=== PATIENT | male | born 1945 | race Caucasian/White ===

== ENCOUNTER 2016-05-30 12:38 | Inpatient (IN) | payer MEDICARE, BC ==
--- NOTE | ~2016-05-30 | DS ---
Discharge Summary [facility] [address] [place]. [address] NAME: JENNIFER HOLT : 47 STATUS : DIS IN PAT#: [id number] AGE: 71 ADM/REG DATE : 05/30/16 MR#: [id number] REPORT SERV DATE: 06/07/16 DICTATED BY: MICHAEL CALLE DATE: 06/04/16 REPORT STATUS : Draft TRANSCRIBED BY: MODL DATE: 06/04/16 ADMISSION DATE: 05/30/2016 DISCHARGE DATE: 06/04/2016 DISCHARGE DIAGNOSES: 1. Respiratory failure leading to . 2. Exacerbation of chronic obstructive pulmonary disease. 3. Acute systolic heart failure with depressed ejection fraction, cardiomyopathy, previous history of coronary artery disease with stenting and bypass surgery. 4. Diabetes mellitus. 5. Acute kidney injury. 6. resolved. The patient was admitted for exacerbation of COPD. He had hypoxic respiratory failure. He is on Vapotherm during hospital stay, required high levels of FiO2. Discussion with the patient he repeatedly stated he did not wish any advanced life support. I have discussed with his family who agreed. The patient was placed on comfort measures on 06/03/16. He succumbed at approximately 1505 on 06/04/2016. The patient been in comfort measures. No labs were drawn that day, however. His last creatinine was 1.06. His H and H were 11.4 and 32.8. Chest x-ray showed hyperinflated lungs. He also has atrial fibrillation. His acute exacerbation of COPD failed to respond to the therapeutic measures taken. The patient did require some support Levophed which was able to be tapered off. Family was present. Patient is . RP/MODL Michael Calle M.D. / [id number] CC: MD Oli Vicente M.D.
--- NOTE | ~2016-05-30 | HP ---
History And Physical [address] [address] NAME: JENNIFER HOLT : 47 STATUS : ADM IN [facility]#: [id number] AGE: 71 ADM/REG DATE : 05/30/16 MR#: [id number] REPORT SERV DATE: 05/30/16 DICTATED BY: VIV KEMP DATE: 05/30/16 REPORT STATUS : Draft TRANSCRIBED BY: MODL DATE: 05/30/16 DATE OF ADMISSION: 05/30/2016 ADDENDUM: Hepatosplenomegaly noted. EXTREMITIES: There is no pedal edema. Pedal pulses are very diminished. We were barely able to get a dorsalis pedis pulse. The patient states that he has no known history of PVD. NEUROLOGICAL: Grossly no motor deficits. PSYCHIATRIC: Normal. MUSCULOSKELETAL: Normal at this time. LABS: That I have on this patient include the following: CBC shows a WBC count of 14.8, hemoglobin 13.4, hematocrit of 40.2, platelet count of 314. INR is 1.2. Total protein is 6.5, albumin is 2.6. Alkaline phosphatase is elevated at 704, AST 52, lipase is 464. Sodium is 139, potassium is 5.6, BUN is 52, creatinine is 1.3. Troponin I is 0.02. Chest x-ray portable that was done here shows mild interstitial thickening with pulmonary edema. There are no pleural effusions, and the patient does have COPD. Arterial blood gases show pH of 7.3, pCO2 of 36, pO2 of 55, bicarb of 16.9. O2 saturation 87.7 on 36% inspired oxygen. ASSESSMENT: 1. My assessment in this gentleman is acute hypoxic respiratory failure secondary to cardiogenic pulmonary edema and/or probably a combination of acute exacerbation of chronic obstructive pulmonary disease too. 2. Probably sepsis as his WBC count is elevated and he is tachycardic and hypoxic. However, at this time, I do not have a lactate level or a procalcitonin level. Hence, I am going to order those two. DIAGNOSES: 1. Acute exacerbation of chronic obstructive pulmonary disease. 2. Acute systolic heart failure. 3. Chronic diagnoses include coronary artery disease, status post CABG. 4. Chronic systolic heart failure with an ejection fraction 40%-45% from ischemic cardiomyopathy. 5. Ongoing tobacco abuse. 6. Diabetes mellitus. 7. Hypertension. 8. Hypercholesterolemia. ASSESSMENT: 1. As the patient is in acute hypoxemic respiratory failure, and is mildly hypotensive and also acidotic, we will go ahead and admit this patient to the MICU. We attempted admitting him to [facility], but [facility] has no beds at this time and hence, I have contacted Dr. Janeth Davenport the technical specialist cytogenetics on-call today and he has agreed to take the patient to MICU so he can be watched for the next 24-48 hours until he stabilizes. At this time, we will start the patient on IV normal saline at 100 mL an hour and at [facility] [address] [address] NAME: JENNIFER HOLT : 47 STATUS : ADM IN [facility]#: [id number] AGE: 71 ADM/REG DATE : 05/30/16 MR#: [id number] REPORT SERV DATE: 05/30/16 DICTATED BY: VIV KEMP DATE: 05/30/16 REPORT STATUS : Draft TRANSCRIBED BY: DONALD DATE: 05/30/16 the same time, give him Lasix 40 mg IV b.i.d. If his systolic blood pressure is less than 90, I have asked the nurse to hold the Lasix. 2. We will have to make adjustments in his fluid balance/fluid status based on how he does respiratory mendiola. 3. We will also start him on broad-spectrum antibiotics per sepsis protocol as he is being admitted to the MICU. 4. We will also put him on supplemental oxygen as needed to keep oxygen saturation above 92% and repeat an ABG in the next 2-3 hours to see how he is doing respiratory mendiola. 5. We will go ahead and keep him on sliding scale insulin with Accu-Cheks before meals and at bedtime. For now, we will keep him only on clear liquids. 6. We will also get a CT angiogram to rule out pulmonary embolism as he is quite hypoxic at this time. 7. We will discontinue some of his home medications that he uses for his chronic obstructive pulmonary disease including inhaled corticosteroids and Spiriva. However, we will not start him on any systemic corticosteroids at this time. I will transfer the care of this patient to Dr. Janeth Davenport who will be following this patient later on today and tomorrow before he is being stabilized and transferred back to floor. RRA/MODL Viv Kemp M.D. / [id number] CC: MD Oli Vicente M.D.
--- NOTE | ~2016-05-30 | HP ---
History And Physical [address] [place]. [address] NAME: JENNIFER HOLT : 47 STATUS : ADM IN [facility]#: [id number] AGE: 71 ADM/REG DATE : 05/30/16 MR#: [id number] REPORT SERV DATE: 05/30/16 DICTATED BY: VIV KEMP DATE: 05/30/16 REPORT STATUS : Draft TRANSCRIBED BY: MODL DATE: 05/30/16 DATE OF ADMISSION: 05/30/2016 Mr. Holt is a 71-year-old male patient, who called his family actually last night because he was feeling extremely dizzy when he stood up and fell. His family checked on him last night, and this morning also he was feeling quite dizzy, and he also started getting short of breath which was really worse this morning, as he was breathing. DICTATION ENDS HERE MACIEA/DONALD Viv Kemp M.D. / [id number] CC: MD Oli Vicente M.D.
[~2016-05-30 12:38] MED LIST: ASAB PO; COMBIVENT RESPIM4 GM INH; CORDARONE PO; COREG25 PO; COREG6 PO; FISH OIL1200 MG PO; GLUCOPHAGE1000 MG PO; GLUCPH PO; LEVAQUIN750 MG PO; LIPITOR40 PO; LISINOPRIL40 MG PO; LOP50 PO; MOBIC15 MG PO; MVI PO; NITROSTAT0.4 MG SL; NORCO1 TA1 PO; NORV10 PO; NORV5 PO; NTG150 SL; P20; PRIN2.5 PO; PROAIR HFA INH; SPIRIVA RESPIMAT INH; SYMBICORT 160/41 INH INH; SYMBICORT 80/4.1 INH INH; TOPXL100 PO
[2016-05-30 13:05] LABS: BASOPHILS 0.1 %; BASOPHILS ABSOLUTE 0.01 10/3/uL (0.0-0.16); EOSINOPHILS 0.1 %; EOSINOPHILS ABSOLUTE 0.01 10/3/uL (0.0-0.53); HEMATOCRIT 40.2 % (40.0-51.0); HEMOGLOBIN 13.4 g/dL (13.6-17.8); IMMATURE GRANULOCYTES 0.5 %; IMMATURE GRANULOCYTES ABSOLUTE 0.08 10/3/uL (0.0-0.11); LYMPHOCYTES 13.5 %; MEAN CORPUSCULAR HEMOGLOB 31.5 pg (26.0-34.0); MEAN PLATELET VOLUME 8.9 fL (9.2-13.0); MONOCYTES 3.8 %; MONOCYTES ABSOLUTE 0.56 10/3/uL (0.21-1.20); NEUTROPHILS ABSOLUTE 12.13 10/3/uL (2.02-8.40); PLATELET COUNT 314 10/3/uL (150-400); RBC DISTRIBUTION WIDTH 16.9 % (12.0-16.0); RED CELL COUNT 4.26 10/6/uL (4.7-6.1); WHITE BLOOD CELLS 14.8 10/3/uL (4.5-10.5)
[2016-05-30 13:07] LABS: MANUAL DIFF NO %; MEAN CORPUS HGB CONC 33.3 g/dL (32.0-36.0); MEAN CORPUSCULAR VOLUME 94.4 fL (80-100)
[2016-05-30 13:12] LABS: INTERNATIONAL NORMAL RATI 1.2 UNITS (-); PARTIAL THROMBO TIME 31.5 SEC (22.5-37.2); PROTIME (NOT ORD) 14.9 SEC (12.0-14.5)
[2016-05-30 13:21] LABS: ALBUMIN 2.6 G/DL (3.5-5.0); ALKALINE PHOSPHATASE 704 U/L (45-117); DIRECT BILIRUBIN < 0.1 MG/DL (0.0-0.4); INDIRECT BILIRUBIN(NOT ORDER) 0.7 MG/DL (0.1-0.9); SGOT(AST) 52 U/L (5-40); SGPT(ALT) 18 U/L (5-65); TOTAL BILIRUBIN 0.8 MG/DL (0-1.2); TOTAL PROTEIN 6.5 G/DL (6.0-8.5)
[2016-05-30 13:23] LABS: CALCIUM, SERUM 9.1 MG/DL (8.5-10.4); CHEST PAIN PROFILE TAT 0 Hrs 24 Mins; CHLORIDE, SERUM 108 MMOL/L (96-112); CO2 (CARBON DIOXIDE) 22 MMOL/L (24-34); CREATININE 1.33 MG/DL (0.70-1.30); GFR AFRICAN AMERICAN 62 ML/MIN (>=60); GFR NON AFRICAN AMERICAN 54 ML/MIN (>=60); POTASSIUM, SERUM 5.6 MMOL/L (3.5-5.3); TROPONIN I 0.02 NG/ML (<0.05)
[2016-05-30 13:24] LABS: BUN (BLOOD UREA NITROGEN) 52 MG/DL (6-23); GLUCOSE, SERUM 132 MG/DL (60-99); SODIUM, SERUM 139 MMOL/L (135-148)
[2016-05-30 14:15] LABS: ALLENS TEST Pos; BE (BASE EXCESS) -8.7 MEQ/L (0 +/- 2.5); CARBOXYHEMOGLOBIN 1.3 % (0-3); HCO3 (ACTUAL BICARBONATE) 16.9 MEQ/L (23-27); HEMOBLOGIN CONTENT 12.8 G/DL (14-18); INSTRUMENT SERIAL # 8087; METHEMOGLOBIN 0.3 % (0-3); O2 CONTENT 15.5 VOL% (18-24); OPERATOR ID 14335; PCO2 (CO2 TENSION) 36 MMHG (35-45); PO2 (O2 TENSION) 55 MMHG (79-93); SAMPLE Arterial
[2016-05-30] MEDS ORDERED: LISINOPRIL40 MG PO (14:16)
[2016-05-30 18:33] LABS: ALLENS TEST Pos; BE (BASE EXCESS) -10.9 MEQ/L (0 +/- 2.5); CARBOXYHEMOGLOBIN 0.6 % (0-3); DEVICE Nasal Cannula @6l; HCO3 (ACTUAL BICARBONATE) 13.5 MEQ/L (23-27); HEMOBLOGIN CONTENT 12.9 G/DL (14-18); INSTRUMENT SERIAL # 8083; METHEMOGLOBIN 0.1 % (0-3); O2 CONTENT 16.7 VOL% (18-24); OPERATOR ID 14382; PCO2 (CO2 TENSION) 27 MMHG (35-45); PO2 (O2 TENSION) 67 MMHG (79-93); SAMPLE Arterial; pH 7.32 (7.37-7.43)
[2016-05-30 18:37] LABS: PROCALCITONIN < 0.05 ng/mL (<0.5)
[2016-05-30 19:43] LABS: BUN (BLOOD UREA NITROGEN) 50 MG/DL (6-23); CALCIUM, SERUM 8.8 MG/DL (8.5-10.4); CHLORIDE, SERUM 106 MMOL/L (96-112); CO2 (CARBON DIOXIDE) 19 MMOL/L (24-34); CREATININE 1.05 MG/DL (0.70-1.30); GFR AFRICAN AMERICAN 83 ML/MIN (>=60); GFR NON AFRICAN AMERICAN 72 ML/MIN (>=60); GLUCOSE, SERUM 123 MG/DL (60-99); POTASSIUM, SERUM 5.8 MMOL/L (3.5-5.3); SODIUM, SERUM 137 MMOL/L (135-148); TROPONIN I <0.02 NG/ML (<0.05)
[2016-05-30 20:56] LABS: FREE T4 1.52 NG/DL (0.76-1.46)
[2016-05-30 21:18] LABS: CPK (IF ELEVATED MB BANDS) 218 U/L (0-200)
[2016-05-30 21:36] LABS: CK-MB 5.8 NG/ML
[2016-05-30 21:38] LABS: CKMB INDEX (NOT ORD) 2.7
[2016-05-31 00:02] LABS: BUN (BLOOD UREA NITROGEN) 49 MG/DL (6-23); CALCIUM, SERUM 8.1 MG/DL (8.5-10.4); CHLORIDE, SERUM 105 MMOL/L (96-112); CO2 (CARBON DIOXIDE) 20 MMOL/L (24-34); GFR AFRICAN AMERICAN 88 ML/MIN (>=60); GFR NON AFRICAN AMERICAN 76 ML/MIN (>=60); GLUCOSE, SERUM 107 MG/DL (60-99); POTASSIUM, SERUM 5.5 MMOL/L (3.5-5.3); SODIUM, SERUM 138 MMOL/L (135-148)
[2016-05-31 04:14] LABS: BASOPHILS 0 %; EOSINOPHILS 0 %; HEMOGLOBIN 11.2 g/dL (13.6-17.8); IMMATURE GRANULOCYTES 0.4 %; IMMATURE GRANULOCYTES ABSOLUTE 0.05 10/3/uL (0.0-0.11); LYMPHOCYTES 12.7 %; LYMPHOCYTES ABSOLUTE 1.42 10/3/uL (0.67-4.30); MEAN CORPUS HGB CONC 33.2 g/dL (32.0-36.0); MEAN CORPUSCULAR HEMOGLOB 30.9 pg (26.0-34.0); MEAN CORPUSCULAR VOLUME 93.1 fL (80-100); MEAN PLATELET VOLUME 9.2 fL (9.2-13.0); MONOCYTES 2.4 %; MONOCYTES ABSOLUTE 0.27 10/3/uL (0.21-1.20); NEUTROPHILS 84.5 %; NEUTROPHILS ABSOLUTE 9.42 10/3/uL (2.02-8.40); PLATELET COUNT 245 10/3/uL (150-400); RBC DISTRIBUTION WIDTH 16.7 % (12.0-16.0); RED CELL COUNT 3.62 10/6/uL (4.7-6.1); WHITE BLOOD CELLS 11.2 10/3/uL (4.5-10.5)
[2016-05-31 04:18] LABS: HEMATOCRIT 33.7 % (40.0-51.0); MANUAL DIFF NO %
[2016-05-31 04:32] LABS: BUN (BLOOD UREA NITROGEN) 46 MG/DL (6-23); CALCIUM, SERUM 8.5 MG/DL (8.5-10.4); CHLORIDE, SERUM 105 MMOL/L (96-112); CO2 (CARBON DIOXIDE) 20 MMOL/L (24-34); CPK (IF ELEVATED MB BANDS) 237 U/L (0-200); CREATININE 1.07 MG/DL (0.70-1.30); GFR AFRICAN AMERICAN 81 ML/MIN (>=60); GFR NON AFRICAN AMERICAN 70 ML/MIN (>=60); GLUCOSE, SERUM 93 MG/DL (60-99); PHOSPHORUS, SERUM 4.2 MG/DL (2.5-4.5); POTASSIUM, SERUM 5.3 MMOL/L (3.5-5.3); SODIUM, SERUM 138 MMOL/L (135-148); TROPONIN I 0.05 NG/ML (<0.05)
[2016-05-31 04:46] LABS: CK-MB 5.1 NG/ML
[2016-05-31 04:55] LABS: CKMB INDEX (NOT ORD) 2.2
[2016-05-31 06:30] LABS: ALLENS TEST Pos; BE (BASE EXCESS) -7.8 MEQ/L (0 +/- 2.5); CARBOXYHEMOGLOBIN 0.3 % (0-3); DEVICE NC; HCO3 (ACTUAL BICARBONATE) 16.3 MEQ/L (23-27); HEMOBLOGIN CONTENT 11.8 G/DL (14-18); INSTRUMENT SERIAL # 8083; METHEMOGLOBIN 0.1 % (0-3); O2 CONTENT 15.4 VOL% (18-24); OPERATOR ID 17370; PCO2 (CO2 TENSION) 29 MMHG (35-45); PO2 (O2 TENSION) 67 MMHG (79-93); SAMPLE Arterial; pH 7.36 (7.37-7.43)
[2016-05-31 21:38] LABS: BE (BASE EXCESS) -2.9 MEQ/L (0 +/- 2.5); CARBOXYHEMOGLOBIN 0.4 % (0-3); DEVICE NC; HCO3 (ACTUAL BICARBONATE) 21.2 MEQ/L (23-27); HEMOBLOGIN CONTENT 12.4 G/DL (14-18); INSTRUMENT SERIAL # 8083; METHEMOGLOBIN 0.3 % (0-3); O2 CONTENT 14.6 VOL% (18-24); OPERATOR ID 334499; PCO2 (CO2 TENSION) 35 MMHG (35-45); PO2 (O2 TENSION) 49 MMHG (79-93); SAMPLE Arterial
[2016-05-31 21:39] LABS: ALLENS TEST Pos
[2016-06-01 04:10] LABS: BASOPHILS 0.1 %; BASOPHILS ABSOLUTE 0.01 10/3/uL (0.0-0.16); EOSINOPHILS 0 %; HEMOGLOBIN 11.7 g/dL (13.6-17.8); IMMATURE GRANULOCYTES 0.4 %; IMMATURE GRANULOCYTES ABSOLUTE 0.05 10/3/uL (0.0-0.11); LYMPHOCYTES 13.2 %; LYMPHOCYTES ABSOLUTE 1.82 10/3/uL (0.67-4.30); MANUAL DIFF NO %; MEAN CORPUS HGB CONC 34.4 g/dL (32.0-36.0); MEAN CORPUSCULAR HEMOGLOB 32.1 pg (26.0-34.0); MEAN CORPUSCULAR VOLUME 93.2 fL (80-100); MEAN PLATELET VOLUME 8.8 fL (9.2-13.0); MONOCYTES ABSOLUTE 0.83 10/3/uL (0.21-1.20); NEUTROPHILS 80.3 %; NEUTROPHILS ABSOLUTE 11.11 10/3/uL (2.02-8.40); PLATELET COUNT 199 10/3/uL (150-400); RBC DISTRIBUTION WIDTH 16.2 % (12.0-16.0); RED CELL COUNT 3.65 10/6/uL (4.7-6.1); WHITE BLOOD CELLS 13.8 10/3/uL (4.5-10.5)
[2016-06-01 04:24] LABS: A/G RATIO 0.8 (0.7-1.9); ALBUMIN 2.6 G/DL (3.5-5.0); CALCIUM, SERUM 8.6 MG/DL (8.5-10.4); CHLORIDE, SERUM 102 MMOL/L (96-112); CO2 (CARBON DIOXIDE) 20 MMOL/L (24-34); CREATININE 1.11 MG/DL (0.70-1.30); GFR AFRICAN AMERICAN 78 ML/MIN (>=60); GFR NON AFRICAN AMERICAN 67 ML/MIN (>=60); GLOBULIN 3.2 G/DL (2.5-4.1); POTASSIUM, SERUM 5.3 MMOL/L (3.5-5.3); SGOT(AST) 89 U/L (5-40); SGPT(ALT) 16 U/L (5-65); SODIUM, SERUM 134 MMOL/L (135-148); TOTAL BILIRUBIN 0.9 MG/DL (0-1.2); TOTAL PROTEIN 5.8 G/DL (6.0-8.5)
[2016-06-01 04:33] LABS: ALKALINE PHOSPHATASE 633 U/L (45-117); BUN (BLOOD UREA NITROGEN) 51 MG/DL (6-23); GLUCOSE, SERUM 171 MG/DL (60-99); PHOSPHORUS, SERUM 3.2 MG/DL (2.5-4.5)
[2016-06-01 17:28] LABS: CALCIUM, SERUM 8.7 MG/DL (8.5-10.4); CHLORIDE, SERUM 101 MMOL/L (96-112); CO2 (CARBON DIOXIDE) 21 MMOL/L (24-34); GFR AFRICAN AMERICAN 88 ML/MIN (>=60); GFR NON AFRICAN AMERICAN 76 ML/MIN (>=60); GLUCOSE, SERUM 137 MG/DL (60-99); SODIUM, SERUM 136 MMOL/L (135-148)
[2016-06-01 17:29] LABS: BUN (BLOOD UREA NITROGEN) 45 MG/DL (6-23)
[2016-06-01 23:29] LABS: ALLENS TEST Pos; BE (BASE EXCESS) -3.9 MEQ/L (0 +/- 2.5); CARBOXYHEMOGLOBIN 0.3 % (0-3); DEVICE vapotherm; HCO3 (ACTUAL BICARBONATE) 19.1 MEQ/L (23-27); HEMOBLOGIN CONTENT 12.3 G/DL (14-18); INSTRUMENT SERIAL # 8083; METHEMOGLOBIN 0.1 % (0-3); O2 CONTENT 16.5 VOL% (18-24); OPERATOR ID 334499; PCO2 (CO2 TENSION) 29 MMHG (35-45); PO2 (O2 TENSION) 75 MMHG (79-93); SAMPLE Arterial; pH 7.44 (7.37-7.43)
[2016-06-02 04:25] LABS: BASOPHILS 0 %; EOSINOPHILS 0 %; HEMATOCRIT 32.8 % (40.0-51.0); HEMOGLOBIN 11.4 g/dL (13.6-17.8); IMMATURE GRANULOCYTES 0.7 %; IMMATURE GRANULOCYTES ABSOLUTE 0.08 10/3/uL (0.0-0.11); LYMPHOCYTES 14.4 %; LYMPHOCYTES ABSOLUTE 1.55 10/3/uL (0.67-4.30); MEAN CORPUS HGB CONC 34.8 g/dL (32.0-36.0); MEAN CORPUSCULAR VOLUME 92.1 fL (80-100); MEAN PLATELET VOLUME 9.2 fL (9.2-13.0); MONOCYTES 5.6 %; NEUTROPHILS 79.3 %; NEUTROPHILS ABSOLUTE 8.57 10/3/uL (2.02-8.40); PLATELET COUNT 176 10/3/uL (150-400); RBC DISTRIBUTION WIDTH 16.2 % (12.0-16.0); RED CELL COUNT 3.56 10/6/uL (4.7-6.1); WHITE BLOOD CELLS 10.8 10/3/uL (4.5-10.5)
[2016-06-02 04:26] LABS: MANUAL DIFF NO %
[2016-06-02 04:31] LABS: BUN (BLOOD UREA NITROGEN) 43 MG/DL (6-23); CHLORIDE, SERUM 98 MMOL/L (96-112); CO2 (CARBON DIOXIDE) 23 MMOL/L (24-34); CREATININE 1.06 MG/DL (0.70-1.30); GFR AFRICAN AMERICAN 82 ML/MIN (>=60); GFR NON AFRICAN AMERICAN 71 ML/MIN (>=60); PHOSPHORUS, SERUM 3.1 MG/DL (2.5-4.5); POTASSIUM, SERUM 4.6 MMOL/L (3.5-5.3); SODIUM, SERUM 134 MMOL/L (135-148)
[2016-06-02 04:33] LABS: GLUCOSE, SERUM 177 MG/DL (60-99)
[2016-06-02 09:27] LABS: BE (BASE EXCESS) -4.9 MEQ/L (0 +/- 2.5); CARBOXYHEMOGLOBIN 0.4 % (0-3); HCO3 (ACTUAL BICARBONATE) 20.3 MEQ/L (23-27); INSTRUMENT SERIAL # 8083; METHEMOGLOBIN 0.1 % (0-3); PCO2 (CO2 TENSION) 38 MMHG (35-45); PO2 (O2 TENSION) 57 MMHG (79-93); pH 7.34 (7.37-7.43)
[2016-06-02 09:28] LABS: ALLENS TEST Pos; DEVICE HFNC; HEMOBLOGIN CONTENT 12.1 G/DL (14-18); O2 CONTENT 14.9 VOL% (18-24); OPERATOR ID 334499; SAMPLE Arterial
[2016-06-02 11:40] LABS: PROCALCITONIN 0.14 ng/mL (<0.5)
== END 2016-06-04 16:57 | disposition expired | DRG 291 ==
LOC: ER 12:38 → MIC 14:58
PROVIDERS: Emergency Medicine; Internal Medicine Critical Care Medicine; Internal Medicine Pulmonary Disease
PROC: 02H633Z Insertion of Infusion Device into Right Atrium, Percutaneous Approach (ICD-10-PCS; principal; 2016-05-30)
PROC: 4A02X4A Measurement of Cardiac Electrical Activity, Guidance, External Approach (ICD-10-PCS; 2016-05-30)
DX: I50.23 Acute on chronic systolic (congestive) heart failure (principal); J96.01 Acute respiratory failure with hypoxia; E43 Unspecified severe protein-calorie malnutrition; N17.9 Acute kidney failure, unspecified; E87.2 Acidosis; I27.2 Other secondary pulmonary hypertension; I48.91 Unspecified atrial fibrillation; E87.5 Hyperkalemia; J44.1 Chronic obstructive pulmonary disease with (acute) exacerbation; Z68.1 Body mass index [BMI] 19.9 or less, adult; I25.5 Ischemic cardiomyopathy; E11.9 Type 2 diabetes mellitus without complications; Z41.9 Encounter for procedure for purposes other than remedying health state, unspecified; I25.10 Atherosclerotic heart disease of native coronary artery without angina pectoris; Z95.5 Presence of coronary angioplasty implant and graft; F17.210 Nicotine dependence, cigarettes, uncomplicated; I10 Essential (primary) hypertension; E78.00 Pure hypercholesterolemia, unspecified; Z51.5 Encounter for palliative care; Z66 Do not resuscitate; Z88.0 Allergy status to penicillin; Z79.82 Long term (current) use of aspirin; Z79.84 Long term (current) use of oral hypoglycemic drugs; I25.2 Old myocardial infarction; E78.5 Hyperlipidemia, unspecified; Z91.81 History of falling
CPT/HCPCS: 36569; 36600; 71010; 80048; 80053; 80076; 82533; 82550; 82553; 82805; 82962; 83605; 83690; 83735; 83880; 84100; 84145; 84439; 84443; 84481; 84484; 85025; 85610; 85730; 87040; 87070; 87205; 87641; 93005; 94640; 94660; 94667; 94668; 96365; 96375; 99285; A9270-GY; C1751; C8929; J0282; J0456; J1940; J1956; J2930; P9047; Q9957